=== PATIENT | female | born 1995 | race Caucasian/White ===

== ENCOUNTER 2019-08-20 06:52 | Day surgery (SDC) | payer BC ==
[~2019-08-20] VITALS: Ht 165.1 cm; Wt 59.0 kg
[2019-08-20 08:20] LABS: HCG,QUAL RESULT NEGATIVE (NEGATIVE)
[2019-08-20] MEDS ORDERED: BACITRACIN ZINC 15 GM TOPICAL OINTMENT TP ONE (11:00)
[2019-08-20] MEDS ORDERED: OXYMETAZOLINE HCL 0.05% NASAL SPRAY NS ONE (11:00)
[2019-08-20] MEDS ORDERED: fentaNYL CITRATE/PF 100 MCG/2 ML AMP IVP ONE (11:00)
[2019-08-20] MEDS ORDERED: PROPOFOL 200MG/ 20ML VIAL (DIPRIVAN) IV ONE (11:00)
[2019-08-20] MEDS ORDERED: WATER FOR IRRIGATION,STERILE 1,000 ML IRRIG.SOLN IR ONE (11:00)
[2019-08-20] MEDS ORDERED: ONDANSETRON HCL 4 MG/2 ML VIAL IVP ONE (11:00)
[2019-08-20] MEDS ORDERED: MIDAZOLAM HCL 5 MG/5 ML VIAL IVP ONE (11:00)
[2019-08-20] MEDS ORDERED: NS IRRIG SOLN 1000 ML IR ONE (11:00)
[2019-08-20] MEDS ORDERED: MUPIROCIN 2% TOPICAL OINTMENT 22 GM TP ONE (11:00)
[2019-08-20] MEDS ORDERED: MEPERIDINE HCL/PF 100 MG/ML AMP IM ONE (11:00)
[2019-08-20] MEDS ORDERED: LIDOCAINE/EPI 1% 1:100000 20 ML VIAL INJ ONE (11:00)
[2019-08-20] MEDS ORDERED: EPINEPHrine 1 MG/ML AMP IM ONE (11:00)
[2019-08-20] MEDS ORDERED: DEXAMETHASONE SOD PHOSPHATE 4 MG/ML VIAL IVP ONE (11:00)
[2019-08-20] MEDS ORDERED: SUCCINYLCHOLINE CHLORIDE 20 MG/ML(QUELICIN) IVP ONE (11:00)
[2019-08-20] MEDS ORDERED: SEVOFLURANE 15 MIN GAS INH ONE (11:00)
[2019-08-20] MEDS ORDERED: NS 1000 ML IV.SOLN IV ONE (11:00)
[2019-08-20] MEDS ORDERED: LR 1,000 ML IV.SOLN IV ONE (11:00)
[2019-08-20] MEDS ORDERED: LR 1,000 ML IV SCH (11:22)
[2019-08-20] MEDS ORDERED: ONDANSETRON HCL 4 MG/2 ML VIAL IVP PRN (11:30)
[2019-08-20] MEDS ORDERED: HYDROmorphone 1 MG INJ. 1 MG/ML AMPUL IVP PRN (11:30)
[2019-08-20] MEDS ORDERED: MEPERIDINE HCL/PF 25 MG/ML DISP.SYRIN IVP PRN (11:30)
[2019-08-20] MEDS ORDERED: KETOROLAC TROMETHAMINE 30 MG VIAL IVP PRN (11:30)
[2019-08-20] MEDS ORDERED: KETOROLAC TROMETHAMINE 30 MG VIAL ONE (14:44)
[2019-08-20 15:41] VITALS: BP_SYST 106
== END 2019-08-20 16:10 | disposition home or self-care (01) ==
LOC: SMU 06:52 → SDS 06:52
PROVIDERS: ATTEND Otolaryngology
DX: J34.89 Other specified disorders of nose and nasal sinuses (principal); J32.8 Other chronic sinusitis; E78.5 Hyperlipidemia, unspecified
CPT/HCPCS: 30140; 31256; 31296; 84703; 88305; C1726; J0171; J0330; J1100; J1885; J2175; J2250; J2405; J2704; J3010; J7030; J7120